=== PATIENT | male | born 1955 | race Caucasian/White ===

== ENCOUNTER 2018-11-02 15:15 | Emergency (ER) | payer OTHER ==
[~2018-11-02] VITALS: Ht 193 cm; Wt 103.4 kg
[2018-11-02] MEDS ORDERED: PROSCAR5 MG PO (15:26)
[2018-11-02] MEDS ORDERED: PRILOSEC OTC20 MG PO (15:27)
[2018-11-02] MEDS ORDERED: LISINOPRIL10 MG PO (15:27)
[2018-11-02] MEDS ORDERED: MELOXICAM7.5 MG PO (15:27)
== END 2018-11-02 17:31 | disposition home or self-care (01) ==
LOC: ED 15:15
PROC: 0XQPXZZ Repair Left Index Finger, External Approach (ICD-10-PCS; principal; 2018-11-02)
DX: S61.211A Laceration without foreign body of left index finger without damage to nail, initial encounter (principal); I10 Essential (primary) hypertension; K21.9 Gastro-esophageal reflux disease without esophagitis; Z87.891 Personal history of nicotine dependence; Z79.899 Other long term (current) drug therapy; W26.0XXA Contact with knife, initial encounter
CPT/HCPCS: 12002; 99283-25

== ENCOUNTER 2021-12-29 21:42 | Emergency (ER) | payer OTHER ==
[~2021-12-29] VITALS: Ht 193 cm; Wt 108.9 kg
[~2021-12-29 21:42] MED LIST: ACETAMINOPHEN500 MG PO; HYDROCODON-ACE1 EA10 PO; IBUPROFEN600 MG PO; LEVAQUIN500 MG PO; LISINOPRIL10 MG PO; MELOXICAM7.5 MG PO; MIRALAX17 GM PO; NORCO 5-325 TA1 EACH PO; OMEPRAZOLE20 MG PO; PROSCAR5 MG PO
== END 2021-12-30 01:55 | disposition home or self-care (01) ==
LOC: ED 21:42
DX: R50.82 Postprocedural fever (principal); R10.814 Left lower quadrant abdominal tenderness; I10 Essential (primary) hypertension; K21.9 Gastro-esophageal reflux disease without esophagitis; Z20.822 Contact with and (suspected) exposure to COVID-19; Z87.891 Personal history of nicotine dependence; Z79.899 Other long term (current) drug therapy
CPT/HCPCS: 36415; 71045; 80053; 81001; 85025; 87502; A9270; U0003

== ENCOUNTER 2022-01-02 15:03 | Observation (INO) | payer OTHER ==
[~2022-01-02] VITALS: Ht 193 cm; Wt 108.6 kg
[~2022-01-02 15:03] MED LIST changes: +BACTRIM DS TAB1 EACH PO; +DOXYCYCLINE HY100 MG PO
--- OUTSIDE RECORDS SUMMARY | 2022-01-02 15:12 | XMS ---
PreManage Notification: NICOLA VENEGAS Security Senior Care Manager Events No recent Security Events currently on file CRITERIA MET - [facility] - 2 Visits in 30 Days CARE PROVIDERS There are no care providers on record at this time. Kaleigh has no Care Guidelines for this patient. [facility]12 MO.) [facility] NOTE: Visits indicate total known visits. ED/C VISIT TRACKING (12 MO.) 01/02/2022 15:[address] [facility] [place] TYPE: Emergency COMPLAINT: - POST OP PROBLEM 12/29/2021 21:[address] [facility] [place] TYPE: Emergency COMPLAINT: - POST OP FEVER DIAGNOSES: - Other intermediate (current) drug therapy - Postprocedural fever - Personal history of nicotine dependence - Left lower quadrant abdominal tenderness - Contact with and (suspected) exposure to COVID-19 - Essential (primary) hypertension - Gastro-esophageal reflux disease without esophagitis INPATIENT VISIT TRACKING (12 MO.) No inpatient visits to display in this time frame [id number]
--- NOTE | 2022-01-03 00:47 | NUR ---
At approximately 2230, this nurse received this patient from ED. Patient A&Ox4. Respirations unlabored. Lung sounds clear bilat. Abdomen soft. Bowel sounds active all quads. Able to stand, walk independently. Complains of 1/10 pain in scrotum. Claims pain rises to 6/10 when coughing. Refuses PRN pain medications. Scrotum is very edematous. Surgical incision in left groin. Approximated w/steri strips. WILFRID drain attached w/suture superior to surgical incision. WILFRID drain draining pink, serous fluid. Shackles on wrists and ankles. CO at bedside.
--- NOTE | 2022-01-03 04:45 | NUR ---
Patient has had continuous, 1/10 pain in scrotum throughout shift. Continuous, occasional cough causes pain to increase. Scrotum edematous. CO remains at patient's bedside. Patient remains in wrist and ankle shackles. Good circulation to all extremeties. Patient denies nausea. Ambulates independently. Has not required any PRN medications for pain. WILFRID drain has drained minimal, pink/serous fluid.
--- NOTE | 2022-01-03 06:14 | NUR ---
CHANGED PATIENT'S ATTENDS TWICE WITH LOOSE BLACK BM. PRIMARY RN DID GUAIAC TEST. SWEET CARE DONE. PATIENT REPOSITIONED. PATIENT APPEARS ORIENTED AND ANSWERS QUESTIONS APPROPRIATELY THIS TIME. CALL LIGHT AND SIDE TABLE WITHIN REACH.
[2022-01-03] MEDS ORDERED: FINASTERIDE5 MG PO (08:52)
[2022-01-03] MEDS ORDERED: HYDROCHLOROTH12.5 M1 PO (08:53)
[2022-01-03] MEDS ORDERED: MELOXICAM7.5 MG PO (08:53)
[2022-01-03] MEDS ORDERED: MIRALAX119 GM PO (08:56)
[2022-01-03] MEDS ORDERED: TYLENOL325 MG PO (08:58)
--- NOTE | 2022-01-03 09:30 | NUR ---
Patient awake in bed, no distress. Patient reports his pain is tolerable at this time, denies nasuea. IV fluids infusing per provider order. Patient denies needs at this time. diplomatic officer at bedside. No current needs at this time.
[2022-01-03] MEDS ORDERED: ACETAMINOPHEN500 MG PO (13:45)
--- NOTE | 2022-01-03 13:55 | HP ---
[facility] [address], [place] [address] Signed ADMISSION DATE: 01/02/2022 REASON FOR ADMISSION: Swelling in left groin, recent repair of giant left inguinal hernia with incarcerated sigmoid colon. HISTORY OF PRESENT ILLNESS: This 66-year-old white man is a prisoner at [facility]. He is well-known to me from the recent past, having undergone repair of a giant left inguinal hernia on December 28, 2021. He was found at the time of operation to have an incarcerated hernia in the left groin related to entire filling of the hemiscrotum with sigmoid colon. Operation consisted of open reduction of the hernia with ligation of the sac and implantation of Prolene mesh in an underlay technique. Given the extent of dissection, a drain was placed in the left hemiscrotum through a separate incision. The patient presented to the emergency room today at approximately 04:56 p.m., and was evaluated initially by Dr. Jones and subsequently Dr. Shah having had swelling after a severe coughing jag three days ago. He has had no GI symptoms of obstruction and he has had no trouble urinating. The patient was seen on postoperative day #1 in the emergency room without any acute findings, but was considered possibly to have a developing upper respiratory infection was given antibiotics. His past history does include a TURP and COPD. The patient was concerned that the onse of his symptoms was related to severe coughing. He said he felt a "heaviness" in the left groin and scrotum after the coughing spell. Clinical examination showed the left hemiscrotum to be somewhat boggy in the left groin area to be firm and somewhat fibrotic. A CT scan was performed under the direction of Dr. Jones and Ankita, which included findings extensive soft tissue density and stranding in the inguinal canal into the scrotum with some scrotal fluid and no soft tissue gas. His surgical drain is well positioned. There is no sign of drainable hematoma or abscess. The possibility of recurrent hernia with inflamed fat was considered as well. Numerous diverticula were seen in the sigmoid colon. There was no sign of free fluid within the peritoneal space and no sign of abscess or free air. An incidental right inguinal hernia was also noted with non-inflamed fat. The patient has had no nausea or vomiting or anything to suggest a bowel obstruction. The hemiscrotum has not been tense and distended particularly. Electronically Signed By: NICOLA STEPHENSON MD 01/03/22 1355 PATIENT NAME: NICOLA VENEGAS HISTORY AND PHYSICAL DATE OF : 55 REPORT #: [id number] PHYSICIAN: NICOLA STEPHENSON MD PCP: MAURY ALFONSO-Reina REPORT IS CONFIDENTIAL AND NOT TO BE RELEASED WITHOUT AUTHORIZATION [address] [id number] [place], [place] [address] Signed REVIEW OF SYSTEMS: He denies any shortness of breath or chest pain. He is having no fever currently. His temperature has been as high as 103 on the day he was evaluated postoperatively. All day in the past two days, 99, he says. PHYSICAL EXAMINATION: GENERAL: A relatively tall white man, who looks to be alert and oriented without sign of systemic toxicity at all. VITAL SIGNS: Temperature is 98.3, pulse 73, respirations 20, blood pressure 137/95, and O2 saturation 99%. CHEST: Shows normal respiratory excursion. He has no active wheeze, but he does have episodic cough. ABDOMEN: Mildly obese, but generally soft and certainly not tender. In the left groin area where the incision, he has a firm fibrotic-appearing soft tissue protrusion and the left hemiscrotum is similarly distended. The left hemiscrotum is rather soft and somewhat boggy. It is not tender in the slightest. There is mild ecchymosis dependently. A drain, which is in position shows only serosanguineous fluid. I performed bedside ultrasound with a [employer] ultrasound device. I did identify a small hydrocele around the testicle. The canal and the cord structures were evaluated showing good pulsatile flow within the cord and amorphous, somewhat edematous tissue otherwise. I did not see any thing to suggest bowel-- specifically no colon or small-bowel within the site. The amorphous tissues of the left groin proper were similarly without sign of hollow viscus that I can tell. ASSESSMENT: The patient had a rather extensive operation for an incarcerated hernia containing essentially all of the sigmoid. Careful reduction of the hernia was accomplished and the hernia sac secured and the mesh implanted in an underlay technique with a double-layer of sutures on the edges to optimally secure the mesh. His underlying COPD and cough-- in particular his coughing spell-- was associated with what he thinks was the onset of swelling in the left inguinal area and is thus concerned for possible reherniation. Three-view examination with a CT scan including coronal sagittal and transverse shows in my estimation that all of the colon remains in the peritoneal cavity, but the amorphous nature of the leftemiscrotum and inguinal area is somewhat unclear. Certainly, edema and inflammation alone or even hematoma would be a possibility. The drain was placed so as to avoid such a problem. His lab studies are quite normal with white count of 6.5 and hematocrit of 35.4, and his electrolytes are normal though his creatinine is 1.29. COVID serology is negative and urinalysis is normal. I think at this point, given the logistics of the skilled nursing and so Electronically Signed By: NICOLA STEPHENSON MD 01/03/22 1355 PATIENT NAME: NICOLA VENEGAS HISTORY AND PHYSICAL DATE OF : 55 REPORT #: [id number] PHYSICIAN: NICOLA STEPHENSON MD PCP: MAURY ALFONSO REPORT IS CONFIDENTIAL AND NOT TO BE RELEASED WITHOUT AUTHORIZATION [facility] [address], [place] [address] Signed forth, we will directly admit to the hospital and consideration will be made for possible exploration of the groin tomorrow. If there is no sign of reherniation and this represents only edema and inflammation of the cord and soft tissues, then that would be most welcome, however, if there is reherniation in the area, the remedy of the hernia would be appropriate. We will treat the patient with bronchodilators tonight and so forth as he does have an episodic cough and although no clinical signs of pneumonia, certainly this may have contributed to his current situation. Additionally, I will review his imaging studies with radiologist in person tomorrow. MD JANETH Brunner/MARISL /[id number] cc: MD Wanda Willard, VENTURA EOCI Kingston Jones MD Copies: HEATHER SHAH MD, MICHAEL MD ~ Electronically Signed By: NICOLA STEPHENSON MD 01/03/22 1355 PATIENT NAME: VENEGASNICOLA HISTORY AND PHYSICAL DATE OF : 55 REPORT #: [id number] PHYSICIAN: NICOLA STEPHENSON MD PCP: MAURY LAFONSO-Reina REPORT IS CONFIDENTIAL AND NOT TO BE RELEASED WITHOUT AUTHORIZATION
--- NOTE | 2022-01-03 14:46 | NUR ---
Scheduled tylenol dose admin. [facility]'s IV [facility] Three correctional officers at bedside. WILFRID drain removed by Dr. Boothe when he rounded this afternoon.
--- NOTE | 2022-01-05 10:04 | NUR ---
Received a call from Andreea at [facility], she is covering for Nelly. Requests dc notes for Santi Molina. FAxed progress note. Confirmed pt was discharged on 01/03/22.
== END 2022-01-03 14:41 | disposition home or self-care (01) ==
LOC: ED 15:03 → MS 15:05
PROVIDERS: ADMIT Surgery; ATTEND Surgery
DX: R19.04 Left lower quadrant abdominal swelling, mass and lump (principal); I10 Essential (primary) hypertension; K21.9 Gastro-esophageal reflux disease without esophagitis; J44.9 Chronic obstructive pulmonary disease, unspecified; Z20.822 Contact with and (suspected) exposure to COVID-19; Z87.891 Personal history of nicotine dependence; Z98.890 Other specified postprocedural states
CPT/HCPCS: 36415; 74177; 80053; 81001; 85025; 96360; 96372; 96374; 99284-25; A9270; C9803; G0378; J1644; J7030; J7121; Q9967; U0003